=== PATIENT | male | born 1995 | race Two or more races ===

== ENCOUNTER 2017-11-09 14:43 | Emergency (ER) | payer BC, OTHER ==
[2017-11-09] MEDS ORDERED: LET GEL TOPICAL 1 EA SYR TP ONE (14:57)
--- NOTE | 2017-11-09 15:00 | EDPHY ---
H & P Stated Complaint: finger lac Time Seen by Provider: 11/09/17 14:53 HPI/ROS: CHIEF COMPLAINT: laceration HISTORY OF PRESENT ILLNESS: The patient is a 22-year-old man who works at all [employer] and was cutting onions when he accidentally cut the tip of his left thumb. The it does involve the very end of his finger nail but not nail bed as well as the tip of his finger. No other injuries. Bleeding controlled. His tetanus up-to-date. He describes the pain is minimal. REVIEW OF SYSTEMS: Constitutional: denies: chills, fever, recent illness, recent injury EENTM: denies: blurred vision, double vision, nose congestion Respiratory: denies: cough, shortness of breath Cardiac: denies: chest pain, irregular heart rate, lightheadedness, palpitations Gastrointestinal/Abdominal: denies: abdominal pain, diarrhea, nausea, vomiting, blood streaked stools Genitourinary: denies: dysuria, frequency, hematuria, pain Musculoskeletal: denies: joint pain, muscle pain Skin: See HPI Neurological: denies: headache, numbness, paresthesia, tingling, dizziness, weakness Hematologic/Lymphatic: denies: blood clots, easy bleeding, easy bruising Immunologic/allergic: denies: HIV/AIDS, transplant EXAM: GENERAL: Well-appearing, well-nourished and in no acute distress. HEAD: Atraumatic, normocephalic. EYES: Pupils equal round and reactive to light, extraocular movements intact, sclera anicteric, conjunctiva are normal. ENT: TMs normal, nares patent, oropharynx clear without exudates. Moist mucous membranes. NECK: Normal range of motion, supple without lymphadenopathy or JVD. LUNGS: Breath sounds clear to auscultation bilaterally and equal. No wheezes rales or rhonchi. HEART: Regular rate and rhythm without murmurs, rubs or gallops. ABDOMEN: Soft, nontender, normoactive bowel sounds. No guarding, no rebound. No masses appreciated. BACK: No CVA tenderness, no spinal tenderness, step-offs or deformities EXTREMITIES: Normal range of motion, no pitting or edema. No clubbing or cyanosis. NEUROLOGICAL: Cranial nerves II through XII grossly intact. Normal speech, normal gait. 5/5 strength, normal movement in all extremities, normal sensation PSYCH: Normal mood, normal affect. SKIN: See above, small laceration/avulsion to left hip thumb. Does involve just the very distal aspect of the fingernail but nail bed. Source: Patient Exam Limitations: No limitations - Personal History Current Tetanus/Diphtheria Vaccine: Yes Current Tetanus Diphtheria and Acellular Pertussis (TDAP): Yes - Medical/Surgical History Hx Asthma: No Hx Chronic Respiratory Disease: No Hx Diabetes: No Hx Cardiac Disease: No Hx Renal Disease: No Hx Cirrhosis: No Hx Alcoholism: No Hx HIV/AIDS: No Hx Splenectomy or Spleen Trauma: No - Family History Significant Family History: No pertinent family hx - Social History Smoking Status: Never smoked Alcohol Use: Sober Drug Use: None Constitutional: Initial Vital Signs Temperature (C) 36.8 C 11/09/17 14:47 Heart Rate 75 11/09/17 14:47 Respiratory Rate 18 11/09/17 14:47 Blood Pressure 150/85 H 11/09/17 14:47 O2 Sat (%) 98 11/09/17 14:47 O2 Delivery Mode Room Air Allergies/Adverse Reactions: Sulfa (Sulfonamide Antibiotics) Allergy (Verified 04/16/12 17:11) BEE STINGS Allergy (Uncoded 04/16/12 17:11) Home Medications: Medication Instructions Recorded Lisdexamfetamine Dimesylate 20 mg PO 04/16/12 [Vyvanse] Medical Decision Making Procedures: Head intentions of tacking down the skin flap however wound evaluated closer after anesthesia it is very shallow. It was simply clipped off and the patient was dressed with Surgicel in a Vaseline impregnated gauze and tube gauze dressing. ED Course/Re-evaluation: We discussed leaving this in place for 48 hr and then removing it tentatively. He understands and agrees with this plan. He declines further workup or testing at this time. Differential Diagnosis: Partial list of the Differential diagnosis considered include but were not limited to; laceration, avulsion and although unlikely based on the history and physical exam, I also considered foreign body, nail injury, nail bed injury , fracture, crush injury. I discussed these differential diagnoses and the plan with the patient as well as the usual and expected course. The patient understands that the diagnosis is provisional and that in medicine we are not always correct and that further workup is often warranted. Usual and customary warnings were given. All of the patient's questions were answered. The patient was instructed to return to the emergency department should the symptoms at all worsen or return, otherwise to followup with the physician as we discussed. - Data Points Medications Given: Discontinued Medications Tetracaine/Epinephrine/Lidocaine (Let Gel Topical) 1 ea TP EDNOW ONE Stop: 11/09/17 14:58 Last Admin: 11/09/17 15:00 Dose: 1 ea Departure - Departure Disposition: Home, Routine, Self-Care Clinical Impression: Laceration Condition: Fair Instructions: Laceration (ED) Referrals: Miki Head MD [Primary Care Provider] - As per Instructions
[2017-11-09 18:09] VITALS: BP 142/81
== END 2017-11-09 16:26 | disposition home or self-care (01) ==
LOC: CED 14:43
DX: S61.012A Laceration without foreign body of left thumb without damage to nail, initial encounter (principal); W20.8XXA Other cause of strike by thrown, projected or falling object, initial encounter; Y92.69 Other specified industrial and construction area as the place of occurrence of the external cause; Y99.0 Civilian activity done for income or pay; Y93.89 Activity, other specified